=== PATIENT | female | born 1940 | race Caucasian/White ===

== ENCOUNTER → 2016-05-26 | Outpatient (CLI) | payer MEDICARE, OTHER ==
[~2016-05-26] MED LIST: ASPIR-LOW81 MG PO; ASPIRIN E.C. 8181 MG PO; BRILINTA90 MG PO; CALTRATE-600 W600 MG PO; CLOPIDOGREL; CRANBERRY CONC500 MG PO; K-TAB20; LOVAZA1 GM PO; NEXIUM 40MG40 MG PO; POTASSIUM CH2 MEQ/ML PO; VITAMIN B6; VITAMIN B6100 MG PO; VITAMIN C BUFF500 MG PO; VITAMIN C1 TAB PO; VITAMIN D; VITAMIN D3400 IU PO; VITAMIN E1000 U/CAP PO; VYTORIN; ZETIA 10MG TAB10 MG PO
== END ==
LOC: COL.RAD 14:30
DX: M79.671 Pain in right foot (principal); M79.89 Other specified soft tissue disorders
CPT/HCPCS: J3301

== ENCOUNTER → 2016-07-25 | Outpatient (CLI) | payer MEDICARE, OTHER | LOC: COL.RAD 14:00 | DX: M25.572 Pain in left ankle and joints of left foot (principal) | CPT/HCPCS: J3301; Q9967 ==

== ENCOUNTER → 2016-10-16 | Outpatient (CLI) | payer MEDICARE, OTHER | LOC: COL.RAD 14:30 | DX: M25.571 Pain in right ankle and joints of right foot (principal) | CPT/HCPCS: J3301; Q9967 ==

== ENCOUNTER → 2016-11-19 | Outpatient (CLI) | payer MEDICARE, OTHER | LOC: COL.RAD 13:30 | DX: M19.072 Primary osteoarthritis, left ankle and foot (principal) | CPT/HCPCS: J3301; Q9967 ==

== ENCOUNTER → 2017-01-29 | Outpatient (CLI) | payer MEDICARE, OTHER | LOC: COL.RAD 13:00 | DX: M25.572 Pain in left ankle and joints of left foot (principal) | CPT/HCPCS: J3301; Q9967 ==

== ENCOUNTER → 2017-04-23 | Outpatient (CLI) | payer MEDICARE, OTHER | LOC: COL.RAD 14:30 | DX: M25.572 Pain in left ankle and joints of left foot (principal) | CPT/HCPCS: J3301; Q9967 ==

== ENCOUNTER 2017-06-21 16:34 | Emergency (ER) | payer MEDICARE, OTHER ==
[~2017-06-21] VITALS: Ht 167.6 cm; Wt 64.5 kg
[2017-06-21 16:48] VITALS: BP 110/56; PULSE 81; TEMP 98.9
[2017-06-21] MEDS ORDERED: BACTRIM DS 8001 TAB PO (18:43)
== END 2017-06-21 18:54 | disposition home or self-care (01) ==
LOC: COL.ER 16:34
DX: L02.435 Carbuncle of right lower limb (principal); Z90.710 Acquired absence of both cervix and uterus; Z98.51 Tubal ligation status; Z79.82 Long term (current) use of aspirin

== ENCOUNTER → 2017-08-17 | Outpatient (CLI) | payer MEDICARE, OTHER ==
[~2017-08-17] MED LIST changes: +BACTRIM DS 8001 TAB PO
== END ==
LOC: COL.RAD 14:30
DX: M25.572 Pain in left ankle and joints of left foot (principal)
CPT/HCPCS: J3301; Q9967

== ENCOUNTER → 2017-11-26 | Outpatient (CLI) | payer MEDICARE, OTHER | LOC: COL.RAD 14:30 | DX: M25.572 Pain in left ankle and joints of left foot (principal) | CPT/HCPCS: J3301; Q9967 ==

== ENCOUNTER → 2017-12-21 | Outpatient (CLI) | payer MEDICARE, OTHER | LOC: COL.RAD 14:00 | DX: M19.072 Primary osteoarthritis, left ankle and foot (principal) ==

== ENCOUNTER → 2018-02-18 | Outpatient (CLI) | payer MEDICARE, OTHER | LOC: COL.RAD 14:30 | DX: M25.572 Pain in left ankle and joints of left foot (principal) | CPT/HCPCS: J3301; Q9967 ==

== ENCOUNTER → 2018-05-03 | Outpatient (CLI) | payer MEDICARE, OTHER | LOC: COL.RAD 12:19 | DX: M19.072 Primary osteoarthritis, left ankle and foot (principal) | CPT/HCPCS: J3301; Q9967 ==

== ENCOUNTER → 2018-05-20 | Outpatient (CLI) | payer MEDICARE, OTHER | LOC: COL.RAD 14:30 | DX: M25.572 Pain in left ankle and joints of left foot (principal) | CPT/HCPCS: J3301; Q9967 ==

== ENCOUNTER → 2018-08-04 | Outpatient (CLI) | payer MEDICARE, OTHER | LOC: COL.RAD 13:45 | DX: M25.572 Pain in left ankle and joints of left foot (principal) | CPT/HCPCS: J3301; Q9967 ==

== ENCOUNTER → 2018-08-12 | Outpatient (CLI) | payer MEDICARE, OTHER | LOC: COL.RAD 14:00 | DX: M79.675 Pain in left toe(s) (principal) | CPT/HCPCS: J3301; Q9967 ==

== ENCOUNTER → 2018-09-23 | Outpatient (CLI) | payer MEDICARE, OTHER | LOC: COL.VAS 14:00 | DX: M79.604 Pain in right leg (principal); M79.605 Pain in left leg ==

== ENCOUNTER → 2018-10-14 | Outpatient (CLI) | payer MEDICARE, OTHER | LOC: COL.RAD 13:45 | DX: M19.072 Primary osteoarthritis, left ankle and foot (principal) | CPT/HCPCS: J3301; Q9967 ==

== ENCOUNTER → 2018-11-15 | Outpatient (CLI) | payer MEDICARE, OTHER | LOC: COL.RAD 13:30 | DX: M79.675 Pain in left toe(s) (principal) | CPT/HCPCS: J3301; Q9967 ==

== ENCOUNTER → 2018-12-03 | Outpatient (CLI) | payer MEDICARE, OTHER | LOC: COL.RAD 13:00 | DX: M19.072 Primary osteoarthritis, left ankle and foot (principal) | CPT/HCPCS: J3301; Q9967 ==

== ENCOUNTER → 2019-01-07 | Outpatient (CLI) | payer MEDICARE, OTHER ==
[2019-01-07 16:57] LABS: PH 8 (5-8); SQUAMOUS EPITHELIAL None Seen /hpf; URINE APPEARANCE Clear; URINE BACTERIA Rare /hpf; URINE BILIRUBIN Negative (NEGATIVE); URINE BLOOD Negative (NEGATIVE); URINE COLOR Yellow; URINE GLUCOSE Negative (NEGATIVE); URINE KETONE Negative (NEGATIVE); URINE LEUKOCYTE ESTERASE Negative (NEGATIVE); URINE NITRATE Negative (NEGATIVE); URINE PROTEIN(semi-quant) Negative (NEGATIVE); URINE UROBILINOGEN Negative (NEGATIVE)
[2019-01-07 17:09] LABS: COLLECTION METHOD CLEAN CATCH
== END ==
LOC: COL.LAB 16:31
PROVIDERS: Urology
DX: N39.0 Urinary tract infection, site not specified (principal); R30.0 Dysuria

== ENCOUNTER → 2019-01-13 | Outpatient (CLI) | payer MEDICARE, OTHER | LOC: COL.RAD 14:15 | DX: M25.572 Pain in left ankle and joints of left foot (principal) | CPT/HCPCS: J3301; Q9967 ==

== ENCOUNTER → 2019-05-16 | Outpatient (CLI) | payer MEDICARE, OTHER | LOC: COL.RAD 05-12 14:00 | DX: M25.572 Pain in left ankle and joints of left foot (principal) | CPT/HCPCS: J3301; Q9967 ==

== ENCOUNTER → 2019-06-07 | Outpatient (CLI) | payer MEDICARE, OTHER | LOC: COL.RAD 14:00 | DX: M79.675 Pain in left toe(s) (principal) | CPT/HCPCS: J3301; Q9967 ==

== ENCOUNTER → 2019-08-15 | Outpatient (CLI) | payer MEDICARE, OTHER | LOC: COL.RAD 14:00 | DX: M25.572 Pain in left ankle and joints of left foot (principal) | CPT/HCPCS: Q9967 ==

== ENCOUNTER → 2019-10-07 | Outpatient (CLI) | payer MEDICARE, OTHER | LOC: COL.RAD 14:00 | DX: M79.672 Pain in left foot (principal) | CPT/HCPCS: J3301; Q9967 ==

== ENCOUNTER → 2020-02-13 | Outpatient (CLI) | payer MEDICARE, OTHER | LOC: COL.RAD 13:30 | DX: M25.571 Pain in right ankle and joints of right foot (principal) | CPT/HCPCS: J3301; Q9967 ==

== ENCOUNTER → 2020-05-18 | Outpatient (CLI) | payer MEDICARE, OTHER | LOC: COL.RAD 09:00 | DX: M25.572 Pain in left ankle and joints of left foot (principal) | CPT/HCPCS: J3301; Q9967 ==

== ENCOUNTER → 2020-08-23 | Outpatient (CLI) | payer MEDICARE, OTHER ==
[~2020-08-23] MED LIST changes: +DECADRON6 MG PO; +FLONASEALLERGY NAS; -K-TAB20; +K-TAB20 PO
== END ==
LOC: COL.RAD 14:00
DX: M25.572 Pain in left ankle and joints of left foot (principal)
CPT/HCPCS: J3301; Q9967

== ENCOUNTER → 2020-09-18 | Outpatient (CLI) | payer MEDICARE, OTHER | LOC: COL.RAD 10:30 | DX: M25.572 Pain in left ankle and joints of left foot (principal) | CPT/HCPCS: J3301; Q9967 ==

== ENCOUNTER → 2020-11-21 | Outpatient (CLI) | payer MEDICARE, OTHER | LOC: COL.RAD 11:15 | DX: M25.571 Pain in right ankle and joints of right foot (principal); M25.572 Pain in left ankle and joints of left foot | CPT/HCPCS: J3301; Q9967 ==

== ENCOUNTER → 2021-01-18 | Outpatient (CLI) | payer MEDICARE, OTHER | LOC: COL.RAD 14:00 | DX: M25.572 Pain in left ankle and joints of left foot (principal) | CPT/HCPCS: J3301; Q9967 ==

== ENCOUNTER 2021-02-23 16:57 | Inpatient (IN) | payer MEDICARE, OTHER ==
[~2021-02-23] VITALS: Ht 154.9 cm; Wt 68.9 kg
[~2021-02-23 16:57] MED LIST changes: -DECADRON6 MG PO; -FLONASEALLERGY NAS
[2021-02-23 18:28] LABS: BASO % 0.2 % (0.0-2.0); GRAN # 3.6 K/mm3 (1.4-6.5); GRAN % 82.7 % (42.2-75.2); HEMATOCRIT 38.8 % (37.0-47.0); LYMPH # 0.4 K/mm3 (1.2-3.4); LYMPH % 8.6 % (20.0-51.0); MEAN CELL VOLUME 89 fl (80.0-100.0); MEAN CORPUSCULAR HEMOGLOBIN 30 pg (27.0-31.0); MEAN CORPUSCULAR HGB CONC 34 g/dl (33.0-37.0); MEAN PLATELET VOLUME 11.1 fl (7.4-10.4); MONO # 0.4 K/mm3 (0.1-0.6); PLATELET COUNT 145 K/mm3 (130-400); RED BLOOD COUNT 4.38 M/mm3 (4.10-5.30); REDCELL DISTRIBUTION WIDTH-CV 13.4 % (11.5-14.5)
[2021-02-23 18:37] LABS: ALBUMIN 3.3 gm/dL (3.4-4.8); BILIRUBIN,TOTAL 0.7 mg/dL (0.2-1.2); C-REACTIVE PROTEIN 2.8 mg/dL (0.00-0.50); CALCIUM 8.5 mg/dL (8.4-10.2); CREATININE, serum 0.64 mg/dL (0.57-1.11); TOTAL PROTEIN 6.8 gm/dL (6.2-8.1)
[2021-02-23 18:40] LABS: COLLECTION METHOD CLEAN CATCH
[2021-02-23 18:43] LABS: TROPONIN-I 0.021 ng/mL (0.00-0.033)
[2021-02-23 18:52] LABS: MUCOUS Present /lpf; PH 6 (5-8); SQUAMOUS EPITHELIAL 0-2 /hpf; URINE APPEARANCE Hazy; URINE BACTERIA None Seen /hpf; URINE BILIRUBIN Negative (NEGATIVE); URINE BLOOD Negative (NEGATIVE); URINE COLOR Yellow; URINE GLUCOSE Negative (NEGATIVE); URINE KETONE 1+ (NEGATIVE); URINE LEUKOCYTE ESTERASE Negative (NEGATIVE); URINE NITRATE Negative (NEGATIVE); URINE PROTEIN(semi-quant) 2+ (NEGATIVE); URINE RBC 20-50 /hpf; URINE UROBILINOGEN >=4.0 mg/dL (NEGATIVE)
[2021-02-23 22:27] VITALS: BP 121/68; PULSE 72; TEMP 98.2
--- NOTE | 2021-02-23 23:07 | NUR ---
Patient is alert and oriented x 4, RA 96 SAT, some weakness but able to transfer herself without problems. She has appettite and can taste food. Some runny nose.
[2021-02-23] MEDS ORDERED: FLONASEALLERGY NAS (23:28)
[2021-02-24 03:26] VITALS: BP 125/63; PULSE 77; TEMP 97.3
--- NOTE | 2021-02-24 07:02 | NUR ---
Patient has an stable night, no oxygen needed, patient is weak but still able to walk in the room to the restroom and back. VSS, no fever. All needs met. Shift report given to day shift nurse.
[2021-02-24 08:00] VITALS: BP 121/62; PULSE 82; TEMP 98.6
[2021-02-24 09:23] LABS: GRAN % 64.3 % (42.2-75.2); HEMATOCRIT 39.2 % (37.0-47.0); HEMOGLOBIN 12.7 g/dl (12.5-16.0); LYMPH # 0.8 K/mm3 (1.2-3.4); LYMPH % 25.2 % (20.0-51.0); MEAN CELL VOLUME 90 fl (80.0-100.0); MEAN CORPUSCULAR HEMOGLOBIN 29 pg (27.0-31.0); MEAN CORPUSCULAR HGB CONC 32 g/dl (33.0-37.0); MONO # 0.3 K/mm3 (0.1-0.6); MONO % 10.2 % (1.7-9.3); PLATELET COUNT 145 K/mm3 (130-400); RED BLOOD COUNT 4.35 M/mm3 (4.10-5.30); REDCELL DISTRIBUTION WIDTH-CV 13.5 % (11.5-14.5)
[2021-02-24 09:34] LABS: BILIRUBIN,TOTAL 0.5 mg/dL (0.2-1.2); CALCIUM 8.3 mg/dL (8.4-10.2); CREATININE, serum 0.6 mg/dL (0.57-1.11); POTASSIUM 3.4 mmol/L (3.5-4.5)
--- NOTE | 2021-02-24 10:00 | NUR ---
Assessment completed, alert/oriented, vital signs stable, and afebrile, she denies any pain or discomfort, denies any resp.difficulty / lungs CTA/ no resp.difficulty, o2 sats are WNL on room air, CXR overnight was unremarkable, heart RRR/ distal pulses are palpaable, she is tolerating PO intake well, patient feels she is well enought to go home today, i will discuss plan of care with
--- NOTE | 2021-02-24 12:00 | NUR ---
Discussed plan of care with and we will discharge home later today if she remains afebrile and feeling well after lunch
[2021-02-24] MEDS ORDERED: DECADRON6 MG PO (12:14)
[2021-02-24 12:15] VITALS: BP 121/61; PULSE 74; TEMP 98.7
[2021-02-24 16:45] VITALS: BP 128/66; PULSE 83; TEMP 981
--- NOTE | 2021-02-24 17:19 | NUR ---
Patient is able to ambulate and get around independently, remains afebrile and VS stable, on room air and feeling well, discussed discharge orders with her, instructed to stay well hydrated, instructed to follow up with PCP in 1 week or sooner if symptoms return, IV and tele removed, she is leaving with her daughter, script for Decadron sent to pharmacy for her, I escortd her out the door via wheelchair
== END 2021-02-24 17:20 | disposition home or self-care (01) | DRG 179 ==
LOC: COL.ER 16:57 → MEDICAL 19:18
PROVIDERS: Nurse Practitioner; Physician Assistant; ADMIT Internal Medicine
DX: U07.1 COVID-19 (principal); I25.10 Atherosclerotic heart disease of native coronary artery without angina pectoris; Z95.5 Presence of coronary angioplasty implant and graft; I10 Essential (primary) hypertension; Z90.710 Acquired absence of both cervix and uterus; Z98.42 Cataract extraction status, left eye; Z98.41 Cataract extraction status, right eye; Z79.82 Long term (current) use of aspirin; Z73.0 Burn-out
CPT/HCPCS: 99222-AI; 99239; J0696; J1100; J1650; J7030

== ENCOUNTER → 2021-03-15 | Outpatient (CLI) | payer MEDICARE, OTHER ==
[~2021-03-15] MED LIST changes: +DECADRON6 MG PO; +FLONASEALLERGY NAS
== END ==
LOC: COL.RAD 13:54
DX: M25.572 Pain in left ankle and joints of left foot (principal)

== ENCOUNTER → 2021-06-21 | Outpatient (CLI) | payer MEDICARE, OTHER | LOC: COL.RAD 14:00 | DX: M19.072 Primary osteoarthritis, left ankle and foot (principal) | CPT/HCPCS: J3301; Q9967 ==

== ENCOUNTER → 2021-07-25 | Outpatient (CLI) | payer MEDICARE, OTHER | LOC: COL.RAD 14:12 | DX: M79.675 Pain in left toe(s) (principal) | CPT/HCPCS: J3301; Q9967 ==

== ENCOUNTER 2021-09-15 23:16 | Observation (INO) | payer MEDICARE, OTHER ==
[~2021-09-15] VITALS: Ht 166.4 cm; Wt 66.2 kg
[2021-09-15 23:55] LABS: BASO % 0.5 % (0.0-2.0); EOS # 0.2 K/mm3 (0.0-0.7); GRAN # 6.3 K/mm3 (1.4-6.5); HEMATOCRIT 40.1 % (37.0-47.0); HEMOGLOBIN 13.6 g/dl (12.5-16.0); LYMPH # 1.5 K/mm3 (1.2-3.4); LYMPH % 17.1 % (20.0-51.0); MEAN CELL VOLUME 90 fl (80.0-100.0); MEAN CORPUSCULAR HEMOGLOBIN 31 pg (27-31); MEAN CORPUSCULAR HGB CONC 34 g/dl (33.0-37.0); MEAN PLATELET VOLUME 11.1 fl (7.4-10.4); MONO # 0.5 K/mm3 (0.1-0.6); PLATELET COUNT 154 K/mm3 (130-400); RED BLOOD COUNT 4.45 M/mm3 (4.10-5.30); REDCELL DISTRIBUTION WIDTH-CV 13.8 % (11.5-14.5)
[2021-09-16] VITALS (11 sets, daily range): BP systolic 105–152; BP diastolic 63–88; PULSE 66–86; TEMP 97.5–98.8
[2021-09-16 00:01] LABS: PROTHROMBIN TIME 11.7 SECONDS (9.7-12.8)
[2021-09-16 00:17] LABS: ALBUMIN 4.2 gm/dL (3.4-4.8); BILIRUBIN,TOTAL 0.4 mg/dL (0.2-1.2); C-REACTIVE PROTEIN 0.18 mg/dL (0.00-0.50); CALCIUM 8.9 mg/dL (8.4-10.2); CREATININE, serum 0.7 mg/dL (0.57-1.11); POTASSIUM 3.7 mmol/L (3.5-4.5); TOTAL PROTEIN 6.7 gm/dL (6.2-8.1)
[2021-09-16] MEDS ORDERED: MOBIC15 MG PO (00:54)
[2021-09-16] MEDS ORDERED: CRESTOR5 MG PO (00:56)
[2021-09-16] MEDS ORDERED: CALTRATE-600 W600 MG PO (01:36)
[2021-09-16] MEDS ORDERED: VITAMIN C500 MG PO (01:37)
[2021-09-16] MEDS ORDERED: VITAMIND3 5000 PO (01:38)
--- NOTE | 2021-09-16 01:53 | NUR ---
PATIENT TO ROOM VIA W/C, ACCOMPANIED BY Peggy ALCANTARA.
--- NOTE | 2021-09-16 02:40 | NUR ---
CONFIRMED WITH SHANTI HAYS, DR ROGERS, APPROXIMATE TIME OF COLONOSCOPY AND CLARIFICATION OF BOWEL PREP MEDS, SEE ORDERS GIVEN.
--- NOTE | 2021-09-16 04:30 | NUR ---
PATIENT STATES SHE IS NOT SURE SHE WILL BE ABLE TO DRINK ALL OF [place] BOWEL PREP, REPORTING HISTORY OF NAUSEA/VOMITING WHEN TAKING MED. PATIENT DID AGREE TO TRY AND DRINK MUCH OF BOWEL PREP SHE CAN. NO OTHER NEEDS OR CONCERNS REPORTED.
--- NOTE | 2021-09-16 07:02 | NUR ---
CHANGE OF SHIFT REPORT GIVEN TO DAY SHIFT RNJOSE.
[2021-09-16 07:05] LABS: BASO % 0.2 % (0.0-2.0); EOS # 0.1 K/mm3 (0.0-0.7); EOS % 1.1 % (0.0-4.0); GRAN # 6.9 K/mm3 (1.4-6.5); GRAN % 83.5 % (42.2-75.2); LYMPH # 0.9 K/mm3 (1.2-3.4); MEAN CORPUSCULAR HGB CONC 33 g/dl (33.0-37.0); MEAN PLATELET VOLUME 12.1 fl (7.4-10.4); MONO # 0.3 K/mm3 (0.1-0.6); PLATELET COUNT 131 K/mm3 (130-400); RED BLOOD COUNT 3.67 M/mm3 (4.10-5.30); REDCELL DISTRIBUTION WIDTH-CV 13.9 % (11.5-14.5)
[2021-09-16 07:16] LABS: HEMATOCRIT 34.8 % (37.0-47.0); MEAN CORPUSCULAR HEMOGLOBIN 31 pg (27-31)
[2021-09-16 07:19] LABS: HEMOGLOBIN 11.4 g/dl (12.5-16.0); MEAN CELL VOLUME 95 fl (80.0-100.0)
[2021-09-16 07:23] LABS: CREATININE, serum 0.62 mg/dL (0.57-1.11); POTASSIUM 3.8 mmol/L (3.5-4.5)
--- NOTE | 2021-09-16 07:55 | NUR ---
Initial visit; Patient thanked [employer] for looking in on her and offering God's blessings. [employer] will follow up.
--- NOTE | 2021-09-16 10:08 | NUR ---
bench worker met with patient to discuss discharge plan. Patient currently lives at home alone in [place]. Patient states that her daughter Davida ([phone]) lives "about 3 blocks away". Patient states that she is fully independent with her activities of daily living and she does not utlize any DME to assist with mobility. Patient states that in March she fell in her garage landing on her right knee and hip. She states that she has had follow up appointments since fall with for pain injections. Request made for PT/OT orders. PCP is and she utilizes [facility] pharmacy for medications. Patient does have a DPOA-HC established listing her daughter Nikki. A copy can be found in her EMR. Notified by case management specialist Lauren that the patient is being downgraded to OBS status. Patient is provided education as to why the change is occurring and questions answered. Signed original placed in the patients chart and copy provided back to the patient. Discharge plan: Home
--- NOTE | 2021-09-16 13:49 | NUR ---
Pt off floor for colonoscopy
--- NOTE | 2021-09-16 14:17 | NUR ---
Pt back from colonoscopy. She is alert and oriented, no pain complaints. VSS
--- NOTE | 2021-09-16 14:37 | NUR ---
Informed pt that she will be staying the night, daughter present in the room, both were okay with this. Educated pt on post op diet, starting with clear liquids. CL tray ordered at this time
--- NOTE | 2021-09-16 18:12 | NUR ---
Pt has done well with the clear liquids, advanced to heart healthy. Pt continues to have liquid stool. She is using the commode. Encouraged her to go in to the bathroom, but she states she wants to use the commode. No other needs, call light within reach
[2021-09-16 19:24] LABS: HEMOGLOBIN 11.7 g/dl (12.5-16.0)
[2021-09-16 19:27] LABS: HEMATOCRIT 36.4 % (37.0-47.0)
--- NOTE | 2021-09-16 22:19 | NUR ---
Received report from day shift. Patient alert and oriented x4. VSS. Patient herer for GI bleed s/p upper GI and colonoscopy. Patient resting in bed eating evening meal. Assessment performed. PM med admimistered. Call light within reach.
[2021-09-17 00:13] VITALS: BP 100/49; PULSE 59; TEMP 98.4
[2021-09-17 04:23] VITALS: BP 108/64; PULSE 66; TEMP 98.3
--- NOTE | 2021-09-17 06:06 | NUR ---
Patient had an uneventful shift. Patient requested to chat with provider. Candida explained results to patient from her upper GI and colonoscopy. Patient appeared to be less anxious after that talk. Patient denies any pain or continued bloody stool.
[2021-09-17 06:56] LABS: BASO % 0.5 % (0.0-2.0); EOS # 0.2 K/mm3 (0.0-0.7); EOS % 4.9 % (0.0-4.0); GRAN # 2.5 K/mm3 (1.4-6.5); GRAN % 58.2 % (42.2-75.2); HEMOGLOBIN 10.8 g/dl (12.5-16.0); LYMPH # 1.3 K/mm3 (1.2-3.4); LYMPH % 29.7 % (20.0-51.0); MEAN CELL VOLUME 93 fl (80.0-100.0); MEAN CORPUSCULAR HEMOGLOBIN 31 pg (27-31); MEAN CORPUSCULAR HGB CONC 33 g/dl (33.0-37.0); MONO # 0.3 K/mm3 (0.1-0.6); MONO % 6.5 % (1.7-9.3); PLATELET COUNT 120 K/mm3 (130-400); REDCELL DISTRIBUTION WIDTH-CV 13.9 % (11.5-14.5)
[2021-09-17 07:02] LABS: HEMATOCRIT 32.5 % (37.0-47.0)
[2021-09-17 07:25] LABS: CALCIUM 7.9 mg/dL (8.4-10.2); CREATININE, serum 0.63 mg/dL (0.57-1.11); MAGNESIUM 1.9 mg/dL (1.6-2.6); POTASSIUM 3.5 mmol/L (3.5-4.5)
[2021-09-17 07:37] VITALS: BP 126/58; PULSE 64; TEMP 98
[2021-09-17] MEDS ORDERED: FERROUS SU325 MG/TAB PO (09:32)
--- NOTE | 2021-09-17 10:17 | NUR ---
Follow-up visit; Patient thanked Senior [employer] Developer for looking in on her and offering God's blessings again today.
--- NOTE | 2021-09-17 11:04 | NUR ---
PT GIVEN DISCHARGE INSTRUCTIONS ET EDUCATION. IV IN LEFT FA DISCONTINUED. PT DENIES QUESTIONS, DRESSES SELF IN CLOTHES FROM HOME. PT STATES THAT HER DAUGHTER IS COMING TO PICK HER UP. PT DENIES NEEDS.
--- NOTE | 2021-09-17 12:09 | NUR ---
PT DISCHARGED TO HOME WITH HER DAUGHTER. PT TAKEN OUT TO HER DAUGHTER'S VEHICLE VIA WC.
== END 2021-09-17 12:07 | disposition home or self-care (01) ==
LOC: COL.ER 23:16 → SURG 09-16 00:36
PROVIDERS: Emergency Medicine; Nurse Practitioner Family; ADMIT Internal Medicine
DX: D12.2 Benign neoplasm of ascending colon (principal); K92.1 Melena; K57.30 Diverticulosis of large intestine without perforation or abscess without bleeding; Z86.16 Personal history of COVID-19; Z79.899 Other long term (current) drug therapy
CPT/HCPCS: C9113; G0378; J2704; J7030; Q9967

== ENCOUNTER → 2021-10-21 | Outpatient (CLI) | payer MEDICARE, OTHER ==
[~2021-10-21] MED LIST changes: +CRESTOR5 MG PO; +FERROUS SU325 MG/TAB PO; +MOBIC15 MG PO; +VITAMIN C500 MG PO; +VITAMIND3 5000 PO
== END ==
LOC: COL.RAD 13:00
DX: M25.571 Pain in right ankle and joints of right foot (principal)
CPT/HCPCS: J3301; Q9967

== ENCOUNTER → 2022-07-09 | Outpatient (CLI) | payer MEDICARE, OTHER | LOC: COL.RAD 13:15 | DX: M19.072 Primary osteoarthritis, left ankle and foot (principal); M25.571 Pain in right ankle and joints of right foot | CPT/HCPCS: J3301; Q9967 ==

== ENCOUNTER → 2023-06-17 | Outpatient (CLI) | payer MEDICARE, OTHER ==
[~2023-06-17] MED LIST changes: +Iohexol 300 - 10 ML VIAL IV ONE; +MUCINEX 60600 MG/TA1 PO; +ROBITUSSIN100 MG/5 M PO; +TAMIFLU30 MG PO; +TYLENOL 325MG325 MG PO; +Triamcinolone 40 MG/ML 1 ML VIAL IJ ONE
== END ==
LOC: COL.RAD 13:00
DX: M19.072 Primary osteoarthritis, left ankle and foot (principal)
CPT/HCPCS: J0665; J3301; Q9967

== ENCOUNTER 2023-11-26 08:09 | Day surgery (SDC) | payer MEDICARE, OTHER ==
[2023-11-26] VITALS (7 sets, daily range): BP systolic 112–138; BP diastolic 71–81; PULSE 72–88; TEMP 97.9
[~2023-11-26] VITALS: Ht 165.2 cm; Wt 65.8 kg
[~2023-11-26 08:09] MED LIST changes: +ASPIRIN 81M81 MG/TA2 PO; +CALTRATE 600 +1 TAB PO; +CEFTIN500 MG PO; +CRESTOR 10MG10 MG PO; +EPA FISH OIL1 SGL PO; +FLONASEALLERGY NS; -Iohexol 300 - 10 ML VIAL IV ONE; +K-DUR20 MEQ PO; +LR 1,000 ML IV SCH; +SYSTANE ULTRA P10 ML OP; -Triamcinolone 40 MG/ML 1 ML VIAL IJ ONE; +VITAMIN B12 781 TAB PO; +VITAMIN D31000 I1 PO; +VITAMINC500CH PO
[2023-11-26 09:31] LABS: HEMATOCRIT 39.8 % (37.0-47.0); MEAN CELL VOLUME 91 fl (80.0-100.0); MEAN CORPUSCULAR HEMOGLOBIN 30 pg (27-31); MEAN CORPUSCULAR HGB CONC 33 g/dl (33.0-37.0); MEAN PLATELET VOLUME 11.4 fl (7.4-10.4); PLATELET COUNT 178 K/mm3 (130-400); RED BLOOD COUNT 4.38 M/mm3 (4.10-5.30); REDCELL DISTRIBUTION WIDTH-CV 13.7 % (11.5-14.5)
[2023-11-26] MEDS ORDERED: Lidocaine PF 2% (20 MG/ML) 5 ML VIAL ONE (09:37)
[2023-11-26 09:38] LABS: INR 1.1 (0.8-3.0); PROTHROMBIN TIME 11.9 SECONDS (9.7-12.8)
[2023-11-26 09:47] LABS: CALCIUM 9.4 mg/dL (8.4-10.2); CREATININE, serum 0.67 mg/dL (0.57-1.11); POTASSIUM 3.6 mEq/L (3.5-4.5)
--- NOTE | 2023-11-26 10:37 | NUR ---
1020-PATIENT ALERT AND ORIENTED, DENIES PAIN OR NAUSEA. VSS. LAB AT BEDSIDE FOR BLOOD DRAW. FAMILY BROUGHT TO BEDSIDE, PLAN OF CARE REVIEWED. TRANSFER OF CARE REPORT TO QUINTON PEREZ. PATIENT PROVIDED CALL LIGHT, BED IN LOWEST POSITION,X3 BEDRAILS IN PLACE.
--- NOTE | 2023-11-26 12:21 | NUR ---
PT TOLERATED RECOVERY PERIOD WELL. VS REMAINED WITHIN NORMAL LIMITS. IV DISCONTINUED. PT FREE FROM ACUTE CONCERNS AND COMPLAINS UPON DISCHARGE. PT WAS ASSISTED TO MAIN LOBBY VIA WHEELCHAIR. PT VERBALIZED UNDERSTANDING OF DISCHARGRE INSTRUCTIONS.
== END 2023-11-26 12:10 | disposition home or self-care (01) ==
LOC: COL.CAR 08:09
PROVIDERS: Internal Medicine Cardiovascular Disease
DX: I08.1 Rheumatic disorders of both mitral and tricuspid valves (principal); I70.0 Atherosclerosis of aorta
CPT/HCPCS: J2704; J7120

== ENCOUNTER → 2023-12-21 | Outpatient (CLI) | payer MEDICARE ==
[~2023-12-21] MED LIST changes: +Iohexol 300 - 10 ML VIAL IV ONE; -LR 1,000 ML IV SCH; +Triamcinolone 40 MG/ML 1 ML VIAL IJ ONE
== END ==
LOC: COL.RAD 13:00
DX: M25.571 Pain in right ankle and joints of right foot (principal); M25.572 Pain in left ankle and joints of left foot
CPT/HCPCS: J0665; J3301; Q9967